=== PATIENT | female | born 1980 | race Caucasian/White ===

== ENCOUNTER → 2017-01-22 | Outpatient (CLI) | payer OTHER ==
[~2017-01-22] MED LIST: FLUO40CA2 PO; GADOBUTROL 7.5 MMOL/7.5 ML VIAL IV ONE; LISI40TA PO
--- NOTE | 2017-01-22 15:01 | KCIC ---
EXAM: 1. MRI right hand with and without contrast. 2. MRI right wrist with and without contrast. HISTORY: Chronic right wrist and hand pain, worse with activity. TECHNIQUE: MRI of the right hand and wrist was performed before and after the intravenous administration of 14 mL Gadavist. COMPARISON: None. FINDINGS: Hand: There is mild capsular edema about the proximal interphalangeal joints, most notably at the fifth digit. The distal interphalangeal joints are less well seen in this [id number], but appear less involved. There is mild synovial enhancement about the fifth proximal interphalangeal joint, also involving the adjacent flexor tendon sheath. There is a tiny subchondral cyst along the radial corner of the fifth proximal pharyngeal head. No clear erosions are seen. There is soft tissue edema and enhancement along the distal thumb. No drainable collection is seen. The flexor and extensor mechanisms are intact. The intrinsic musculature demonstrates no edema or atrophy. Wrist: The scapholunate interval is mildly widened at 4 mm. There are partial tears of the volar and middle components of the scapholunate ligament. The dorsal component appears mostly torn. The scapholunate angle appears increased without clear dorsal intercalated segmental instability. There is intrasubstance signal along the dorsal aspect of the triangular fibrocartilage complex without a clearly displaced tear. There is no clear ulnocarpal impaction. Osteophytosis indicates carpometacarpal osteoarthritis. This is worst at the third ray. It is mild at the first ray. Intercarpal and radiocarpal cartilage appears preserved. There are no clear erosions. The carpal tunnel, Guyon's canal and the extensor compartments are unremarkable. IMPRESSION: 1. Mild capsular edema and synovial enhancement about the proximal interphalangeal joints, worst at the fifth ray. This most likely indicates osteoarthritis. No clear erosions. 2. Soft tissue edema and enhancement within the thumb. Correlate for cellulitis or other causes of subcutaneous edema. 3. Partial tears of the components of the scapholunate ligament with mild widening of the scapholunate space and increase in the scapholunate angle. 4. Mild to moderate carpometacarpal osteoarthritis. Electronically signed by: Arabella Ott MD (01/22/2017 2:57 PM)
== END | disposition home or self-care (01) ==
LOC: KCIC MRI 12:04
PROVIDERS: ATTEND Plastic Surgery
DX: S63.501A Unspecified sprain of right wrist, initial encounter (principal); M19.031 Primary osteoarthritis, right wrist; R60.0 Localized edema; X58.XXXA Exposure to other specified factors, initial encounter; Y93.89 Activity, other specified; Y92.89 Other specified places as the place of occurrence of the external cause; Y99.8 Other external cause status
CPT/HCPCS: 73220; 73223; A9585